=== PATIENT | male | born 1980 | race Caucasian/White ===

== ENCOUNTER 2021-05-13 09:35 | Emergency (ER) | payer MEDICAID ==
[~2021-05-13] VITALS: Ht 160 cm; Wt 70.0 kg
--- NOTE | 2021-05-13 10:23 | ED EENT ---
History of Present Illness General Chief Complaint: Dental Problems/Pain Stated Complaint: ABCESS TOOTH Nursing Triage Note: Patient presents with dental pain x's two days. Lower front tooth appears infected. Source: patient Exam Limitations: no limitations History of Present Illness Date Seen by Provider: May 13, 2021 Time Seen by Provider: 10:10 Initial Comments Patient is a 41-year-old gentleman who presents to the emergency department with a chief complaint of dental pain and swelling in his gums over the last 2 or 3 days. Patient states that he bit into some chicken and the tooth became loose. He states that he has follow-up with [facility] on 16 May. Patient denies any fevers or chills. He states he is a diabetic. He has not checked his blood sugar today. He has not been taking anything for pain since the toothache started. He states he is not allergic to anything. All other review of systems reviewed and negative except as stated. Timing/Duration: gradual Location: dental Prearrival Treatment: no prearrival treatment Associated Symptoms: tooth pain Allergies and Home Medications Allergies Coded Allergies: No Known Drug Allergies (Unverified , 05/13/21) Patient Home Medication List Home Medication List Reviewed: Yes Review of Systems Review of Systems Constitutional: see HPI Eyes: No Symptoms Reported Ears: No Symptoms Reported Nose: see HPI Mouth: loose teeth, pain, swelling, purulent discharge Throat: no symptoms reported Respiratory: no symptoms reported Cardiovascular: no symptoms reported Gastrointestinal: no symptoms reported Musculoskeletal: no symptoms reported Skin: no symptoms reported All Other Systems Reviewed Negative Unless Noted: Yes Past Frwafvf-Shrvwe-Bwgtsn Hx Patient Social History Tobacco Use?: No Substance use?: No Alcohol Use?: No Pt feels they are or have been: No Immunizations Up To Date First/Initial COVID19 Vaccinat: 12/2020 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 Physical Exam Vital Signs Vital Signs - First Documented Height, Weight, BMI Height: '" Weight: lbs. oz. kg; 27.00 BMI Method: General Appearance: WD/WN, no apparent distress Eyes: bilateral eye normal inspection, bilateral eye PERRL, bilateral eye EOMI Nose: normal inspection Mouth/Throat: other (Widespread gingivitis is noted. Patient has an abscess to tooth #25, obvious purulent drainage from the buccal side. Widespread tooth decay.) Neck: supple Cardiovascular: regular rate, rhythm Respiratory: no respiratory distress, no accessory muscle use Gastrointestinal: non tender, soft Neurologic/Psychiatric: alert, normal mood/affect, oriented x 3 Skin: normal color, warm/dry Progress/Results/Core Measures Results/Orders Vital Signs/I&O 05/13/21 05/13/21 09:58 09:58 Temp 35.7 35.7 Pulse 81 81 Resp 16 16 B/P (MAP) 124/82 124/82 (96) Pulse Ox 96 O2 Delivery Room Air Room Air Blood Pressure Mean: 96 Progress Progress Note : Time: 10:21 Progress Note Patient has widespread dental decay with an abscess adjacent to tooth #25. We w ill place the patient on antibiotics and chlorhexidine mouth rinses. Patient states that he has follow-up with [facility] next week. Return precautions given. Patient verbalized understanding. All questions are sought and answered. Patient is stable for discharge. Departure Impression Primary Impression: Dental abscess Additional Impressions: Gingivitis, acute Hyperglycemia due to diabetes mellitus Disposition: 01 HOME, SELF-CARE Condition: Stable Departure-Patient Inst. Decision time for Depature: 10:27 Referrals: [facility]/CHRISTINA CALERO,LOCAL PHYSICIAN (PCP) Primary Care Physician Patient Instructions: Tooth Abscess ED Add. Discharge Instructions: I have sent a prescription for chlorhexidine mouth rinse to [facility]. You need to use a tablespoon of this twice a day rinse and spit. 2 different antibiotics, penicillin and Flagyl, these will be taken 3 times a day for the next week to 10 days. I have written you a prescription for some pain medicine, you can take 1 every 6-8 hours as needed for severe pain. Please be sure and keep your appointment with [facility] next week. Come back to the emergency room for any worsening pain especially with fever, swelling, swelling of the floor of the mouth or any other emergent concerning symptoms that may develop. Scripts Hydrocodone/Acetaminophen (Hydrocodone-Acetamin 5-325 mg) 1 Each Tablet 1 TAB PO Q6H PRN for PAIN-MODERATE (5-7), #12 TAB Prov: GONZALO CAM MD 05/13/21 Metronidazole (Metronidazole) 500 Mg Tablet 500 MG PO TID, #28 TAB Prov: GONZALO CAM MD 05/13/21 Penicillin V Potassium (Penicillin V Potassium) 500 Mg Tablet 500 MG PO TID, #30 TAB Prov: GONZALO CAM MD 05/13/21 Chlorhexidine Gluconate (Chlorhexidine Gluconate) 473 Ml Mouthwash 15 ML MM BID, #1500 ML Prov: GONZALO CAM MD 05/13/21 Images Mouth/Nose 1 - Tenderness GONZALO CAM MD May 13, 2021 10:23
[2021-05-13] MEDS ORDERED: METR-145 PO (10:32)
[2021-05-13] MEDS ORDERED: ACHD5005 PO (10:32)
[2021-05-13] MEDS ORDERED: PENI500T PO (10:32)
[2021-05-13] MEDS ORDERED: NFCHLORHGL MM (10:32)
[2021-05-13 10:38] VITALS: BP 124/82
== END 2021-05-13 10:30 | disposition home or self-care (01) ==
LOC: ER 09:39
DX: K04.7 Periapical abscess without sinus (principal); K05.00 Acute gingivitis, plaque induced; E11.65 Type 2 diabetes mellitus with hyperglycemia
CPT/HCPCS: 82947

== ENCOUNTER 2021-11-08 19:46 | Emergency (ER) | payer MEDICAID ==
[~2021-11-08] VITALS: Ht 157.5 cm; Wt 74.8 kg
[~2021-11-08 19:46] MED LIST: ACHD5005 PO; METR-145 PO; NFCHLORHGL MM; PENI500T PO
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
[2021-11-08 20:08] VITALS: BP 133/73
[2021-11-08] MEDS ORDERED: PENI500T PO (20:08)
[2021-11-08] MEDS ORDERED: NFCHLORHGL MM (20:08)
[2021-11-08] MEDS ORDERED: METF-397 PO (20:18)
== END 2021-11-08 20:18 | disposition home or self-care (01) ==
LOC: EDUNIT# 19:46 → ER 19:48
DX: E11.65 Type 2 diabetes mellitus with hyperglycemia (principal); K05.00 Acute gingivitis, plaque induced; I10 Essential (primary) hypertension
CPT/HCPCS: 99283

== ENCOUNTER 2022-03-31 11:53 | Emergency (ER) | payer MEDICAID ==
[~2022-03-31] VITALS: Ht 153 cm; Wt 74.8 kg
[~2022-03-31 11:53] MED LIST changes: +METF-397 PO
[2022-03-31] MEDS ORDERED: IBUPROFEN 800 MG (MOTRIN) TAB PO ONE (12:15)
--- NOTE | 2022-03-31 12:16 | ED Upper Extremity ---
General Chief Complaint: Upper Extremity Stated Complaint: ARM PAIN Nursing Triage Note: PT STATES LT ARM PAIN/BURNING FROM SHOULDER DOWN TO HAND BUT MOSTLY IN THE FOREARM, UNKNOWN CAUSE, FIRST TIME THIS HAS HAPPENED. Source: patient Exam Limitations: no limitations History of Present Illness Date Seen by Provider: Mar 31, 2022 Time Seen by Provider: 12:05 Initial Comments Patient is a 41 yo M who presents to the ED with left forearm, wrist, and hand pain that began two weeks ago. He denies any injury to the area, No h/o similar pain. No medications taken for the symptoms since they began. States the pain is sometimes also in his upper arm and shoulder. Denies any chest pain. States movement sometimes worsens the pain. No numbness/tingling noted. No focal weakness. Onset: other (2 weeks ago) Severity: moderate Pain/Injury Location: left forearm, left wrist, left hand Method of Injury: unknown Allergies and Home Medications Allergies Coded Allergies: No Known Drug Allergies (Unverified , 05/13/21) Patient Home Medication List Home Medication List Reviewed: Yes Chlorhexidine Gluconate (Chlorhexidine Gluconate) 473 Ml Mouthwash, 15 ML MM BID Prescribed by: GONZALO CAM on 05/13/21 103 Chlorhexidine Gluconate (Chlorhexidine Gluconate) 0.12 % Mouthwash, 15 ML MM BID Prescribed by: GONZALO CAM on 11/08/212007 Hydrocodone/Acetaminophen (Hydrocodone-Acetamin 5-325 mg) 1 Each Tablet, 1 TAB PO Q6H PRN for PAIN-MODERATE (5-7) Prescribed by: GONZALO CAM on 05/13/21 103 Metformin HCl (Metformin HCl) 500 Mg Tablet, 500 MG PO BID Prescribed by: GONZALO CAM on 11/08/212017 Metronidazole (Metronidazole) 500 Mg Tablet, 500 MG PO TID Prescribed by: GONZALO CAM on 05/13/21 103 Penicillin V Potassium (Penicillin V Potassium) 500 Mg Tablet, 500 MG PO TID Prescribed by: GONZALO CAM on 05/13/21 103 Penicillin V Potassium (Penicillin V Potassium) 500 Mg Tablet, 500 MG PO TID Prescribed by: GONZALO CAM on 11/08/212007 Review of Systems Constitutional: no symptoms reported EENTM: no symptoms reported Respiratory: no symptoms reported Cardiovascular: no symptoms reported Gastrointestinal: no symptoms reported Musculoskeletal: muscle pain Past Supdyza-Ojlifd-Fwknci Hx Patient Social History Tobacco Use?: No Substance use?: No Alcohol Use?: No Immunizations Up To Date First/Initial COVID19 Vaccinat: 12/2020 Second COVID19 Vaccination Franco: 12/2020 Third COVID19 Vaccination Date: 12/2020 Past Medical History Surgery/Hospitalization HX: TYPE II DIABETIC Physical Exam Vital Signs Vital Signs - First Documented 03/31/22 11:59 Temp 36.1 Pulse 73 Resp 18 B/P (MAP) 131/89 (103) Pulse Ox 98 O2 Delivery Room Air Capillary Refill : Height, Weight, BMI Height: '" Weight: lbs. oz. kg; 31.00 BMI Method: General Appearance: WD/WN, no apparent distress HEENT: PERRL/EOMI Neck: non-tender, full range of motion, supple, normal inspection Cardiovascular: regular rate, rhythm, no edema, no gallop, no JVD, no murmur Respiratory: chest non-tender, lungs clear, normal breath sounds, no respiratory distress, no accessory muscle use Gastrointestinal: normal bowel sounds, non tender, soft, no organomegaly, no pulsatile mass Back: normal inspection, no CVA tenderness, no vertebral tenderness Shoulder: normal inspection, non-tender, no evidence of injury Elbow/Forearm: normal inspection, no evidence of injury, Left, pain, soft tissue tenderness Wrist: Yes normal inspection, Yes no evidence of injury, Yes soft tissue tenderness Hand: normal inspection, non-tender, no evidence of injury Neurologic/Tendon: normal sensation, normal motor functions Neurologic/Psychiatric: engine wiper II-XII nml as tested, no motor/sensory deficits, alert, normal mood/affect, oriented x 3 Skin: normal color, warm/dry Progress/Results/Core Measures Results/Orders My Orders Orders - BASIL STEINER APRN Forearm, Left, 2 Views (03/31/22 12:07) Ibuprofen Tablet (Motrin Tablet) (03/31/22 12:15) Medications Given in ED Current Medications Medications Dose Ordered Sig/Lia Route Start Time Stop Time Status Last Admin Dose Admin Ibuprofen 800 mg ONCE ONCE PO 03/31/22 12:15 03/31/22 12:16 DC 03/31/22 12:14 800 MG Vital Signs/I&O 03/31/22 03/31/22 11:59 12:14 Temp 36.1 36.1 Pulse 73 Resp 18 B/P (MAP) 131/89 (103) Pulse Ox 98 O2 Delivery Room Air Blood Pressure Mean: 103 Progress Progress Note : Progress Note Patient is nontoxic and well hydrated on exam. Visual exam of the LUE reveals no obvious abnormality. No swelling or erythema noted on exam. Pt has full ROM but does endorse some pain with flexion/extension of the wrist as well supination and pronation of the wrist. Pain is mostly on the ulnar side of the forearm. No neurovascular deficit appreciated. Xrays of the left forearm reveal no acute osseous deformity. Will d/c home with recs for supportive care and follow-up with PCP for persistent symptoms. Return precautions for urgent symptomology discussed. Patient verbalized understanding. Departure Impression Primary Impression: Pain of left upper extremity Disposition: HOME, SELF-CARE Condition: Stable Departure-Patient Inst. Decision time for Depature: 13:05 Referrals: NO,LOCAL PHYSICIAN (PCP/Family) Primary Care Physician Patient Instructions: Muscle and Bone Pain (DC) Scripts Naproxen (EC-Naproxen) 500 Mg Tablet. 500 MG PO BID WITH MEALS for 10 Days, #20 TAB Prov: BASIL STEINER APRN 03/31/22 BASIL STEINER APRN Mar 31, 2022 12:16
--- NOTE | 2022-03-31 12:29 | Diagnostic Imaging Report ---
INDICATION: Left forearm pain. COMPARISON: None. DISCUSSION: Two views of left forearm were obtained. Mild posterior soft tissue swelling. No soft tissue gas or foreign body. No fracture or dislocation. Alignment is anatomic. IMPRESSION: 1. Posterior left forearm soft tissue swelling. No fracture. Dictated by: Dictated on workstation # [id number]
[2022-03-31] MEDS ORDERED: NAPR-1211 PO (13:15)
[2022-03-31 13:19] VITALS: BP 131/89
== END 2022-03-31 13:19 | disposition home or self-care (01) ==
LOC: EDUNIT# 11:53 → ER 11:56
DX: M79.632 Pain in left forearm (principal); Z28.311 Partially vaccinated for COVID-19
CPT/HCPCS: 73090

== ENCOUNTER 2022-06-27 08:13 | Emergency (ER) | payer MEDICAID ==
[~2022-06-27] VITALS: Ht 162 cm; Wt 81.0 kg
[~2022-06-27 08:13] MED LIST changes: +NAPR-1211 PO
[2022-06-27 08:23] VITALS: BP 118/74
--- NOTE | 2022-06-27 08:42 | ED EENT ---
History of Present Illness General Chief Complaint: Ear Problems Stated Complaint: EAR PAIN (BOTH EARS) Nursing Triage Note: ARRIVED VIA AMB TO ROOM 08 WITH COMPLAINTS OF BILAT EAR PAIN STARTING LAST NIGHT. Source: patient Exam Limitations: no limitations History of Present Illness Date Seen by Provider: Jun 27, 2022 Time Seen by Provider: 08:25 Initial Comments Here with report of bilateral ear pain starting last night. States that he did use Q-tips to try to clear what he thought was wax. Does have mild congestion but no sore throat. He is vaccinated for COVID and influenza. Also complains of left wrist pain that is been going on for about 3 months. He is right-handed and admits to sleeping on his hands bent. He does not have primary care. Timing/Duration: gradual, yesterday Severity: mild, moderate Location: ear (R), ear (L) Prearrival Treatment: no prearrival treatment Associated Symptoms: No cough, No ear drainage, No facial pain/swelling, No fever; nasal congestion/drainage; No sinus infection, No tooth pain Allergies and Home Medications Allergies Coded Allergies: No Known Drug Allergies (Unverified , 05/13/21) Patient Home Medication List Home Medication List Reviewed: Yes Chlorhexidine Gluconate (Chlorhexidine Gluconate) 473 Ml Mouthwash, 15 ML MM BID Prescribed by: GONZALO CAM on 05/13/21 103 Chlorhexidine Gluconate (Chlorhexidine Gluconate) 0.12 % Mouthwash, 15 ML MM BID Prescribed by: GONZALO CAM on 11/08/212007 Hydrocodone/Acetaminophen (Hydrocodone-Acetamin 5-325 mg) 1 Each Tablet, 1 TAB PO Q6H PRN for PAIN-MODERATE (5-7) Prescribed by: GONZALO CAM on 05/13/21 103 Metformin HCl (Metformin HCl) 500 Mg Tablet, 500 MG PO BID Prescribed by: GONZALO CAM on 11/08/212017 Metronidazole (Metronidazole) 500 Mg Tablet, 500 MG PO TID Prescribed by: GONZALO CAM on 05/13/21 103 Naproxen (EC-Naproxen) 500 Mg Tablet.dr, 500 MG PO BID WITH MEALS Prescribed by: Carlos Smith on 03/31/22 1315 Penicillin V Potassium (Penicillin V Potassium) 500 Mg Tablet, 500 MG PO TID Prescribed by: GONZALO CAM on 05/13/21 1032 Penicillin V Potassium (Penicillin V Potassium) 500 Mg Tablet, 500 MG PO TID Prescribed by: GONZALO CAM on 11/08/212007 Review of Systems Review of Systems Constitutional: see HPI; No chills, No fever Eyes: No Symptoms Reported Ears: See HPI Nose: congestion; denies pain Mouth: no symptoms reported Throat: denies pain, denies painful swallowing Respiratory: no symptoms reported Musculoskeletal: joint pain, joint swelling Skin: No change in color, No lesions Past Sdglljg-Fykdya-Fbukno Hx Patient Social History Tobacco Use?: No Substance use?: No Alcohol Use?: No Immunizations Up To Date First/Initial COVID19 Vaccinat: TRACEY Second COVID19 Vaccination Franco: 12/2020 Third COVID19 Vaccination Date: 12/2020 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 oz. kg; 30.00 BMI Method: General Appearance: WD/WN, no apparent distress Ears: bilateral ear other (Bilateral TM bulging without erythema. No significant cerumen impaction bilateral.) Nose: other (Mild congestion without significant erythema) Mouth/Throat: pharynx normal; No tonsillar swelling Neck: full range of motion, supple, normal inspection Cardiovascular: regular rate, rhythm, no murmur Respiratory: lungs clear, normal breath sounds Neurologic/Psychiatric: alert, oriented x 3 Skin: normal color, warm/dry Left wrist without significant swelling. Does have increased pain with forward flexion on the lateral aspect recreating pain syndrome. Progress/Results/Core Measures Results/Orders Vital Signs/I&O 06/27/22 08:23 Temp 36.2 Pulse 86 Resp 16 B/P (MAP) 118/74 (89) Pulse Ox 98 O2 Delivery Room Air Blood Pressure Mean: 89 Progress Progress Note : Progress Note Seen and evaluated. Discussed importance of follow-up with primary care and we will give him information for community health. Offered IM Decadron for what appears to be upper respiratory congestion with TM bulging. Patient declined. We will initiate patient [id number] Afrin nasal spray and ibuprofen. Discharged home with return precaution. Patient verbalized understanding instructions and agreement with plan. Departure Impression Primary Impression: Acute pain of both ears Additional Impression: Left wrist pain Disposition: HOME, SELF-CARE Condition: Stable Departure-Patient Inst. Decision time for Depature: 08:44 Referrals: ABIGAIL MOSQUERA,LOCAL PHYSICIAN (PCP) [place] Care Physician [facility] [place] Instructions: Carpal Tunnel Syndrome (DC), Eustachian Tube Problems (DC) Add. Discharge Instructions: All discharge instructions reviewed with patient and/or family. Voiced understanding. You may take Tylenol/acetaminophen 1000 mg every 8 hours as needed for fever or pain. You may take ibuprofen 600 mg every 8 hours as needed for fever or pain. You may use Afrin nasal spray or the generic, 12 hour relief, 2 sprays to each nostril twice daily for 3 days only and then stop. Do not use more than 3 days. Follow-up with your Dr. in a few days for recheck. Drink plenty of fluids. Return for worse pain, fever, vomiting, weakness, breathing problems or other concerns as needed. You may use wrist splint as needed for your left wrist pain. You may purchase this haht-nna-ykvicoy as well. It is very important that you follow-up with the doctor listed or of your choosing especially given your history of diabetes. Please establish care. LAURA MESA MD Jun 27, 2022 08:42
== END 2022-06-27 08:54 | disposition home or self-care (01) ==
LOC: EDUNIT# 08:13 → ER 08:15
DX: H92.03 Otalgia, bilateral (principal); M25.532 Pain in left wrist; Z28.310 Unvaccinated for COVID-19
CPT/HCPCS: 99282

== ENCOUNTER 2022-10-12 00:53 | Emergency (ER) | payer MEDICAID ==
[~2022-10-12] VITALS: Ht 145 cm; Wt 78.3 kg
[2022-10-12 00:59] VITALS: BP 119/75
--- NOTE | 2022-10-12 01:11 | ED General ---
General Chief Complaint: General Problems/Pain Stated Complaint: PT STS NEEDS CLEARED FOR WORK,STS DIZZY Nursing Triage Note: REPORTS FEELING DIZZY, DIARRHEA 2 DAYS AGO. REPORTS SX GONE TODAY. NEEDS CLEARED TO GO BACK TO WORK. 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 He does symptoms of them are gone he is feeling fine. Reports that he was told he can come back to work until he was cleared. Allergies and Home Medications Allergies Coded Allergies: No Known Drug Allergies (Unverified , 05/13/21) Patient Home Medication List Home Medication List Reviewed: Yes No Active Prescriptions or Reported Meds Review of Systems Review of Systems Constitutional: see HPI EENTM: no symptoms reported Respiratory: no symptoms reported Cardiovascular: no symptoms reported Gastrointestinal: see HPI Genitourinary: no symptoms reported Musculoskeletal: no symptoms reported Skin: no symptoms reported Past Sydlfsq-Mlylsx-Ezugfn Hx Patient Social History Tobacco Use?: No Substance use?: No Alcohol Use?: No Pt feels they are or have been: No Immunizations Up To Date First/Initial COVID19 Vaccinat: X1 Second COVID19 Vaccination Franco: 12/2020 Third COVID19 Vaccination Date: 12/2020 Past Medical History Surgery/Hospitalization HX: ORAL SURGERY Surgeries: No Endocrine: Yes Diabetes, Non-Insulin dep Physical Exam Vital Signs Capillary Refill : Less Than 3 Seconds Height, Weight, BMI Height: '" Weight: lbs. oz. kg; 37.00 BMI Method: General Appearance: No Apparent Distress, WD/WN Respiratory: Chest Non Tender, Lungs Clear Cardiovascular: Regular Rate, Rhythm, No Edema Gastrointestinal: Non Tender, Soft Extremity: Normal Capillary Refill, Normal Inspection Neurologic/Psychiatric: Alert, Oriented x3, No Motor/Sensory Deficits, Normal Mood/Affect Skin: Normal Color Progress/Results/Core Measures Suspected Sepsis SIRS Temperature: Pulse: 83 Respiratory Rate: 16 Blood Pressure 119 /75 Mean: 90 Results/Orders Vital Signs/I&O Capillary Refill : Less Than 3 Seconds Blood Pressure Mean: 90 Progress Note : Progress Note Patient with some dizziness and diarrhea couple days ago but no symptoms at this time. Patient's symptoms have been resolved. Patient is here for a work note. At this time there are no indications for me to do any further diagnostic studies as he is feeling fine. Patient has unknown cause of his dizziness and diarrhea. He is stable and discharged home Departure Impression Primary Impression: Diarrhea Qualified Codes: R19.7 - Diarrhea, unspecified Disposition: HOME, SELF-CARE Condition: Stable Departure-Patient Inst. Referrals: [facility] [place] Primary Care Physician Patient Instructions: Diarrhea, Adult ED Add. Discharge Instructions: Follow-up with primary care provider or occupational health as needed All discharge instructions reviewed with patient and/or family. Voiced understanding. Scripts No Active Prescriptions or Reported Meds Work/School Note: Work Release Form Date Seen in the Emergency Department: Oct 12, 2022 Return to Work: Oct 12, 2022 Restrictions: Return-No Fever (24hrs), Return-No Vomiting(24hrs) CLARIBEL OMER DO Oct 12, 2022 01:10
== END 2022-10-12 01:11 | disposition home or self-care (01) ==
LOC: EDUNIT# 00:53 → ER 00:57
DX: R19.7 Diarrhea, unspecified (principal); R42 Dizziness and giddiness; Z28.310 Unvaccinated for COVID-19
CPT/HCPCS: 99281

== ENCOUNTER 2023-02-13 19:00 | Emergency (ER) | payer MEDICAID ==
[2023-02-13 19:19] VITALS: BP 121/79
--- NOTE | 2023-02-13 19:23 | ED EENT ---
History of Present Illness General Chief Complaint: Ear Problems Stated Complaint: UNABLE TO HEAR OUT OF RIGHT EAR Source: patient History of Present Illness Date Seen by Provider: Feb 13, 2023 Time Seen by Provider: 19:19 Initial Comments PT ARRIVES VIA POV C/O UNABLE TO HEAR FROM RIGHT EAR X 2 DAYS NO PAIN NO INJURY NO DRAINAGE NO URI SYMPTOMS OR RECENT ILLNESS NO DIZZINESS NO HISTORY OF SIMILAR PCP: [facility] Allergies and Home Medications Allergies Coded Allergies: No Known Drug Allergies (Unverified , 05/13/21) Patient Home Medication List Home Medication List Reviewed: Yes No Active Prescriptions or Reported Meds Review of Systems Review of Systems Constitutional: no symptoms reported Ears: See HPI Neurological: No Symptoms Reported Past Vwrhygl-Xdjffr-Bplood Hx Patient Social History Tobacco Use?: No Use of E-Cig and/or Vaping dev: No Substance use?: No Alcohol Use?: No Pt feels they are or have been: No Immunizations Up To Date First/Initial COVID19 Vaccinat: X1 Second COVID19 Vaccination Franco: X1 Third COVID19 Vaccination Date: X1 Past Medical History Surgery/Hospitalization HX: ORAL SURGERY Surgeries: Yes (ORAL SURGERY) Respiratory: No Cardiac: No Neurological: No Genitourinary: No Gastrointestinal: No Musculoskeletal: No Endocrine: Yes Diabetes, Non-Insulin dep HEENT: No Cancer: No Psychosocial: No Integumentary: No Blood Disorders: No Physical Exam Vital Signs Vital Signs - First Documented 02/13/23 19:19 Temp 36.5 Pulse 93 Resp 18 B/P (MAP) 121/79 (93) Height, Weight, BMI Height: '" Weight: lbs. oz. kg; 37.00 BMI Method: General Appearance: WD/WN, no apparent distress Ears: right ear other (RIGHT EAR WITH CERUMEN IMPACTION; LEFT EAR WITH SMALL AMOUNT OF CERUMEN. LEFT TM IS CLEAR. 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 Departure Impression Primary Impression: Right ear impacted cerumen Disposition: HOME, SELF-CARE Condition: Stable Departure-Patient Inst. Decision time for Depature: 19:25 Referrals: [facility] (PCP/Family) Primary Care Physician Patient Instructions: Ear Wax Impaction ED Add. Discharge Instructions: USE OVER THE COUNTER EAR WAX REMOVAL KIT NEEDED FOR EAR WAX BUILD UP FOLLOW UP WITH [facility] NEEDED All discharge instructions reviewed with patient and/or family. Voiced understanding. Scripts No Active Prescriptions or Reported Meds LEON VÁSQUEZ DO Feb 13, 2023 19:23
[2023-02-13] MEDS ORDERED: DOCUSATE SODIUM 100 MG CAPSULE PO ONE (19:30)
== END 2023-02-13 19:31 | disposition home or self-care (01) ==
LOC: EDUNIT# 19:00 → ER 19:03
DX: H61.21 Impacted cerumen, right ear (principal)
CPT/HCPCS: 99281

== ENCOUNTER 2023-02-18 18:54 | Emergency (ER) | payer MEDICAID ==
[~2023-02-18] VITALS: Ht 165 cm; Wt 83.9 kg
--- NOTE | 2023-02-18 19:21 | ED Upper Extremity ---
General Chief Complaint: Upper Extremity Stated Complaint: ARM PAIN/NUMBNESS Source: patient Exam Limitations: no limitations History of Present Illness Date Seen by Provider: Feb 18, 2023 Time Seen by Provider: 19:10 Initial Comments Patient is a 42-year-old male who presents to the emergency department with a chief complaint of bilateral arm pain. He initially states he woke up with it this morning. Later he states he had it last night before he went to bed. He did take some ibuprofen. Woke up with the pain again. He states it radiates from his shoulders down to his fingers. He denies any injury. No different activities at work yesterday than what he does normally. Movement and palpation make the pain worse. Nothing makes it any better. He denies chest pain, shortness of breath, nausea. He is a diabetic on metformin. Non-smoker, nondrinker. He has not taken any medications today for the pain and states that he stayed home from work today due to the pain. He states he drinks 4 bottles of water daily. No recent fevers or chills, no productive cough. No pain in his legs. Onset: yesterday, other (last evening) Severity: moderate Pain/Injury Location: bilateral shoulder, bilateral arm, bilateral elbow, bilateral forearm Method of Injury: other (wotk) Modifying Factors: Improves With Immobilization; Worse With Movement Allergies and Home Medications Allergies Coded Allergies: No Known Drug Allergies (Unverified , 05/13/21) Patient Home Medication List Home Medication List Reviewed: Yes No Active Prescriptions or Reported Meds Review of Systems Constitutional: see HPI EENTM: no symptoms reported Respiratory: no symptoms reported Cardiovascular: no symptoms reported Gastrointestinal: no symptoms reported Genitourinary: no symptoms reported Musculoskeletal: muscle pain, muscle cramps Skin: no symptoms reported Psychiatric/Neurological: No Symptoms Reported All Other Systems Reviewed Negative Unless Noted: Yes Past Vhbweqt-Iyjpqg-Nnasip Hx Immunizations Up To Date First/Initial COVID19 Vaccinat: X1 Second COVID19 Vaccination Franco: X1 Third COVID19 Vaccination Date: X1 Past Medical History Surgery/Hospitalization HX: ORAL SURGERY Surgeries: Yes (ORAL SURGERY) Respiratory: No Cardiac: No Neurological: No Genitourinary: No Gastrointestinal: No Musculoskeletal: No Endocrine: Yes Diabetes, Non-Insulin dep HEENT: No Cancer: No Psychosocial: No Integumentary: No Blood Disorders: No Physical Exam Vital Signs Vital Signs - First Documented 02/18/23 19:06 Temp 37.0 Pulse 97 Resp 20 B/P (MAP) 111/72 (85) Pulse Ox 99 O2 Delivery Room Air Capillary Refill : Height, Weight, BMI Height: '" Weight: lbs. oz. kg; 37.00 BMI Method: General Appearance: WD/WN, no apparent distress HEENT: PERRL/EOMI Neck: normal inspection Cardiovascular: regular rate, rhythm Respiratory: lungs clear, normal breath sounds, no respiratory distress, no accessory muscle use Gastrointestinal: non tender, soft Shoulder: normal inspection, no evidence of injury, soft tissue tenderness (tenderness to palpation bilateral shoulder/upper arm and forearms. No crepitance. No swelling. No discoloration. no rashes.) Elbow/Forearm: normal inspection, no evidence of injury Wrist: Yes normal inspection, Yes non-tender, Yes no evidence of injury, Yes normal ROM Hand: normal inspection, non-tender, no evidence of injury, normal ROM, Right, Left Neurologic/Psychiatric: alert, normal mood/affect, oriented x 3, other (patient has intact bilateral UE strength and sesnation is normal) Skin: normal color, warm/dry Progress/Results/Core Measures Results/Orders Lab Results Laboratory Tests Test 02/18/23 19:12 Range/Units Glucometer 164 H 70-110 MG/DL My Orders Orders - GONZALO CAM MD Ketorolac Injection (Ketorolac Injection (02/18/23 19:30) Accucheck Stat ONCE (02/18/23 19:35) Medications Given in ED Current Medications Medications Dose Ordered Sig/Lia Route Start Time Stop Time Status Last Admin Dose Admin Ketorolac Tromethamine 15 mg ONCE ONCE IM 02/18/23 19:30 02/18/23 19:31 DC 02/18/23 19:37 15 MG Vital Signs/I&O 02/18/23 02/18/23 19:06 19:39 Temp 37.0 Pulse 97 Resp 20 B/P (MAP) 111/72 (85) 111/72 Pulse Ox 99 O2 Delivery Room Air [facility]SB[facility] Bedside Testing Finger Stick Blood Glucose: 164 Progress Progress Note : Time: 19:25 Progress Note Patient seen and examined by me today. Evaluation today includes physical exam. No concerning findings on physical exam other than tenderness to superficial palpation of the upper and lower bilateral arms. Vital signs stable. Differential diagnosis includes muscle strain, need for work note. Patient is treated in the emergency department with IM ketorolac. No concerning findings on physical exam or in history to warrant laboratory studies or imaging. Patient is counseled on hydration and NSAIDs. He is provided a work note. Departure Impression Primary Impression: Myalgia Disposition: HOME, SELF-CARE Condition: Stable Departure-Patient Inst. Decision time for Depature: 19:27 Referrals: [facility] [place] [facility] [place]) Primary Care Physician Patient Instructions: Muscle Strain ED Add. Discharge Instructions: Drink lots of water to stay well hydrated - especially in this heat. Take over the counter Ibuprofen 3 pills (600mg) every 6-8 hours for muscle pain and aches. Always take Ibuprofen with food. If you have worsening pain especially with fever or new pain in your back or legs, please return to the Emergency Department for re-evaluation. Scripts No Active Prescriptions or Reported Meds Work/School Note: Work Release Form Date Seen in the Emergency Department: Feb 18, 2023 Return to Work: Feb 19, 2023 Copy Copies To 1: ABIGAIL MOSQUERA KATHRYN M MD Feb 18, 2023 19:21
[2023-02-18] MEDS ORDERED: KETOROLAC INJ 15 MG/ML VIAL IM ONE (19:30)
[2023-02-18 19:39] VITALS: BP 111/72
== END 2023-02-18 19:41 | disposition home or self-care (01) ==
LOC: EDUNIT# 18:54 → ER 18:57
DX: M79.601 Pain in right arm (principal); M79.602 Pain in left arm; E11.9 Type 2 diabetes mellitus without complications; Z79.84 Long term (current) use of oral hypoglycemic drugs; Z28.310 Unvaccinated for COVID-19
CPT/HCPCS: 82947

== ENCOUNTER 2023-03-17 18:04 | Emergency (ER) | payer MEDICAID ==
[~2023-03-17] VITALS: Ht 175 cm; Wt 85.0 kg
[2023-03-17 18:31] VITALS: BP 104/86
--- NOTE | 2023-03-17 18:45 | ED Upper Extremity ---
General Chief Complaint: Upper Extremity Stated Complaint: BOTH ARM PAIN, NUMBNESS IN LT FINGERS Nursing Triage Note: pt states both hands go numb at times, states he does a lot of repetitive movements at work. denies any other neurological symptoms. Source: patient Exam Limitations: no limitations History of Present Illness Date Seen by Provider: Mar 17, 2023 Time Seen by Provider: 18:39 Initial Comments Patient is a 42-year-old male who presents ED with numbness and tingling bilateral palmar hands. Patient describes as numbness and tingling. Patient works at [employer]. Patient states he has had symptoms over the past 2 or 3 weeks. 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 States with his repetitive movement he starts get numbness and tingling along the left palmar hand and right little finger, right middle finger and ring finger. States he has normal range of motion of the hand and with warehouse administrator strength. Has been taking ibuprofen without much improvement. Patient denies any redness or bruising. Pain does not radiate from the neck down. State pain radiates from the hand up. Denies fever, chills, nausea vomiting, diarrhea. Allergies and Home Medications Allergies Coded Allergies: No Known Drug Allergies (Unverified , 05/13/21) Patient Home Medication List Home Medication List Reviewed: Yes No Active Prescriptions or Reported Meds Review of Systems Constitutional: No chills, No diaphoresis, No fever, No malaise, No weakness EENTM: No ear pain Respiratory: No cough, No dyspnea on exertion Cardiovascular: No chest pain Gastrointestinal: No abdominal pain, No dysphagia, No nausea, No vomiting Genitourinary: No decreased output Musculoskeletal: No back pain; joint pain, muscle pain Skin: No change in color Psychiatric/Neurological: Numbness, Paresthesia All Other Systems Reviewed Negative Unless Noted: Yes Past Aiqubli-Fdbepx-Wbrxas Hx Patient Social History Tobacco Use?: No Use of E-Cig and/or Vaping dev: No Substance use?: No Alcohol Use?: No Pt feels they are or have been: No Immunizations Up To Date First/Initial COVID19 Vaccinat: X1 Second COVID19 Vaccination Franco: X1 Third COVID19 Vaccination Date: X1 Past Medical History Surgery/Hospitalization HX: none Surgeries: Yes (ORAL SURGERY) Respiratory: No Cardiac: No Neurological: No Genitourinary: No Gastrointestinal: No Musculoskeletal: No Endocrine: Yes Diabetes, Non-Insulin dep HEENT: No Cancer: No Psychosocial: No Integumentary: No Blood Disorders: No Physical Exam Vital Signs Vital Signs - First Documented 03/17/23 18:31 Temp 36.8 Pulse 70 Resp 19 B/P (MAP) 104/86 (92) Pulse Ox 98 O2 Delivery Room Air Capillary Refill : Less Than 3 Seconds Height, Weight, BMI Height: '" Weight: lbs. oz. kg; 27.00 BMI Method: General Appearance: WD/WN, no apparent distress HEENT: PERRL/EOMI, normal ENT inspection, TMs normal, pharynx normal Neck: non-tender, full range of motion, supple Cardiovascular: regular rate, rhythm, no edema, no JVD Respiratory: chest non-tender, lungs clear, normal breath sounds, no respiratory distress Gastrointestinal: normal bowel sounds, non tender, soft Back: normal inspection, no CVA tenderness Shoulder: normal inspection, non-tender, no evidence of injury Elbow/Forearm: normal inspection, no evidence of injury, Right (Tenderness along the right ulnar cubital tunnel.) Wrist: Yes no evidence of injury, Yes normal ROM (Positive failing and Nobleton sign left hand.) Hand: Right (Inside Solar Sales Consultant strength 5 out of 5), Left (Inside Solar Sales Consultant strength 5 out of 5) 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 Differential diagnosis carpal tunnel syndrome, cubital tunnel syndrome, overuse syndrome. Patient works at [employer]. Patient has pain of the left hand and right hand. This appears to be on the palmar side. Right hand is the right little finger, ring finger and middle finger along the ulnar dermatome. Pain of the left hand is along the left little finger, left middle finger, left ring finger, left index and thumb. Positive Phalen sign on the left. States it feels numb. He does have adequate warehouse administrator strength bilateral. Positive cubital tunnel syndrome on the right arm. Concern for nerve impingement. At this time recommend splint of the left wrist. Anti-inflammatories. Rest. Provided work note. This is likely secondary to repetitive use. Would likely benefit with EMG. Provided orthopedic outpatient follow-up. Provided work note. No evidence of weakness. Negative Spurling sign. Return precaution were discussed with patient. Impression Primary Impression: Carpal tunnel syndrome Additional Impression: Cubital tunnel syndrome Disposition: HOME, SELF-CARE Condition: Stable Departure-Patient Inst. Decision time for Depature: 18:43 Referrals: [facility] [place] ([place]P/Family) Primary Care Physician SALVADOR MORALES MD Patient Instructions: Cubital Tunnel Syndrome Add. Discharge Instructions: AvoidWear Velcro splint throughout the day as well as work. Recommend rest. Continue with ibuprofen. Orthopedic follow-up. Need a nerve conduction study test and further evaluation by orthopedic. Recommend limit work that has repetitive movements of the hands and wrist to allow this to heal. Concern for cubital tunnel and or carpal tunnel syndrome All discharge instructions reviewed with patient and/or family. Voiced understanding. Scripts No Active Prescriptions or Reported Meds Work/School Note: Work Release Form Date Seen in the Emergency Department: Mar 17, 2023 Return to Work: Mar 20, 2023 Restrictions: Recommend limiting cutting for at least 2 weeks EBONI WALKER Mar 17, 2023 18:45
== END 2023-03-17 19:01 | disposition home or self-care (01) ==
LOC: EDUNIT# 18:04 → ER 18:07
DX: G56.03 Carpal tunnel syndrome, bilateral upper limbs (principal); G56.23 Lesion of ulnar nerve, bilateral upper limbs
CPT/HCPCS: 99282

== ENCOUNTER 2023-04-20 20:05 | Emergency (ER) | payer MEDICAID ==
[~2023-04-20] VITALS: Ht 157 cm; Wt 77.0 kg
--- NOTE | 2023-04-20 20:22 | ED Cough/URI ---
General Chief Complaint: Cough/Cold/Flu Symptoms Stated Complaint: COUGH/JOINT ACHES Source: patient Exam Limitations: no limitations (EBONI WALKER) History of Present Illness Date Seen by Provider: Apr 20, 2023 Time Seen by Provider: 20:19 Initial Comments Patient is a 43-year-old male who presents to ED with cough, body aches chills weakness. Symptoms started on . Started having a wet productive cough with creamy sputum production. Denies of any shortness of breath or wheezing or chest pain. Patient did have some episodes of diarrhea but that has improved. Denies vomiting. Ports sore throat with a cough. Denies history of smoking history of COPD, coronary artery disease. No one else at home with similar symptoms. Has been taking NyQuil and Tylenol. Patient denies any headache dizziness, pain with urination, decreased urine output, visual changes, abdominal pain, fever, dysuria, hematuria. Patient states he feels like the coughing is getting worse. (EBONI WALKER) Allergies and Home Medications Allergies Coded Allergies: No Known Drug Allergies (Unverified , 05/13/21) Patient Home Medication List Home Medication List Reviewed: Yes (EBONI WALKER) Doxycycline Monohydrate (Doxycycline Monohydrate) 100 Mg Tablet, 100 MG PO BID Prescribed by: NAFISA NAJERA on 04/20/232058 Prednisone (Prednisone) 20 Mg Tab, 40 MG PO DAILY Prescribed by: NAFISA NAJERA on 04/20/232058 Review of Systems Review of Systems Constitutional: No chills, No diaphoresis; malaise, weakness EENTM: throat pain; No ear pain, No blurred vision Respiratory: cough; No dyspnea on exertion, No short of breath Cardiovascular: No chest pain Gastrointestinal: No abdominal pain; diarrhea; No nausea, No vomiting Genitourinary: No decreased output, No discharge Musculoskeletal: No back pain; joint pain, muscle pain Skin: No change in hair/nails (EBONI WALKER) All Other Systems Reviewed Negative Unless Noted: Yes (EBONI WALKER) Past Csyisbv-Whmjjs-Ckcqkm Hx Patient Social History Tobacco Use?: No Use of E-Cig and/or Vaping dev: No Substance use?: No Alcohol Use?: No Pt feels they are or have been: No (EBONI WALKER) Immunizations Up To Date First/Initial COVID19 Vaccinat: X1 Second COVID19 Vaccination Franco: X1 Third COVID19 Vaccination Date: X1 (EBONI WALKER) Past Medical History Surgery/Hospitalization HX: none Surgeries: Yes (ORAL SURGERY) Respiratory: No Cardiac: No Neurological: No Genitourinary: No Gastrointestinal: No Musculoskeletal: No Endocrine: Yes Diabetes, Non-Insulin dep HEENT: No Cancer: No Psychosocial: No Integumentary: No Blood Disorders: No (EBONI WALKER) Physical Exam Vital Signs - First Documented 04/20/23 20:15 Temp 36.6 Pulse 92 Resp 16 B/P (MAP) 116/70 (85) Pulse Ox 99 O2 Delivery Room Air (LEON VÁSQUEZ DO) Capillary Refill : (EBONI WALKER) Height: '" Weight: lbs. oz. kg; 27.00 BMI Method: General Appearance: WD/WN, no apparent distress Eyes: Bilateral Eye Normal Inspection, Bilateral Eye PERRL, Bilateral Eye EOMI HEENT: PERRL/EOMI, normal ENT inspection, TMs normal, pharynx normal Neck: non-tender, full range of motion, supple Respiratory: chest non-tender, lungs clear, normal breath sounds, no respiratory distress Cardiovascular: regular rate, rhythm, no edema, no gallop, no JVD Gastrointestinal: normal bowel sounds, non tender, soft Extremities: normal range of motion, non-tender, normal inspection, no pedal edema Neurologic/Psychiatric: improvement auditor II-XII nml as tested, no motor/sensory deficits, alert, normal mood/affect Skin: normal color, warm/dry (EBONI WALKER) Progress/Results/Core Measures Suspected Sepsis SIRS Temperature: Pulse: Respiratory Rate: Blood Pressure / Mean: (EBONI WALKER) Results/Orders Lab Results Laboratory Tests Test 04/20/23 20:23 Range/Units Influenza Type A (RT-PCR) Not Detected Not Detecte Influenza Type B (RT-PCR) Not Detected Not Detecte SARS-CoV-2 RNA (RT-PCR) Not Detected Not Detecte (LEON VÁSQUEZ DO) Medications Given in ED Current Medications Medications Dose Ordered Sig/Lia Route Start Time Stop Time Status Last Admin Dose Admin Albuterol Sulfate 1 gm ONCE ONCE IH 04/20/23 21:00 04/20/23 21:01 DC 04/20/23 21:08 1 GM Prednisone 50 mg ONCE ONCE PO 04/20/23 21:00 04/20/23 21:01 DC 04/20/23 21:08 50 MG (LEON VÁSQUEZ DO) Vital Signs/I&O 04/20/23 04/20/23 20:15 21:10 Temp 36.6 36.6 Pulse 92 87 Resp 16 16 B/P (MAP) 116/70 (85) 116/70 Pulse Ox 99 99 O2 Delivery Room Air Room Air (LEON VÁSQUEZ DO) Vital Signs/I&O Capillary Refill : (EBONI WALKER) Departure Communication (PCP) Patient presents to ED with cough body aches chills weakness joint pain. Denies history of coronary artery disease, COPD or asthma or smoking. History of diabetes. Patient vital signs were stable. No wheezing retractions. Patient is having significant amount of cough. COVID influenza chest x-ray was ordered. Patient had very subtle wheezing to the right lower lobe. COVID influenza was negative. Chest x-ray shows a Rounded density in the right lower lobe is likely due to infiltrate. Patient received a dose of prednisone. Did receive a alb uterol inhaler and took 2 puffs here in the ED. States he feels better after the inhaler. Patient does not look systemically toxic. Concern for community- acquired pneumonia. History of diabetes. At this time will discharge with oral doxycycline short burst steroids and albuterol inhaler. Vital signs remained stable. At this time we will treat with oral doxycycline. If any worsening symptoms such as chest pain or shortness of breath return back to ED. Recommend follow-up resolution in 7 to 10 days of the chest (EBONI WALKER) Impression Primary Impression: Pneumonia Disposition: HOME, SELF-CARE Condition: Stable Departure-Patient Inst. Decision time for Depature: 20:58 (EBONI WALKER) Referrals: [facility] (PCP/Family) Primary Care Physician Patient Instructions: Pneumonia, Adult (DC) Add. Discharge Instructions: Take antibiotics as prescribed. Albuterol to help with shortness of breath. Prednisone daily for 4 days. Recommend rest at home. If any worsening symptoms such as pain short of breath return back to ED All discharge instructions reviewed with patient and/or family. Voiced understanding. Scripts Prednisone (Prednisone) 20 Mg Tab 40 MG PO DAILY for 4 Days, #8 TAB Prov: EBONI WALKER 04/20/23 Doxycycline Monohydrate (Doxycycline Monohydrate) 100 Mg Tablet 100 MG PO BID for 7 Days, #14 TAB Prov: EBONI WALKER 04/20/23 Work/School Note: Work Release Form Date Seen in the Emergency Department: Apr 20, 2023 Return to Work: Apr 23, 2023 ATTENDING PHYSICIAN NOTE: I WAS PHYSICALLY PRESENT ER PHYSICIAN, BUT I WAS NOT INVOLVED IN ANY DECISION MAKING OR ANY CARE OF THIS PATIENT, AND I AM NOT COLLABORATING PHYSICIAN. (LEON VÁSQUEZ DO) EBONI WALKER Apr 20, 2023 20:22 LEON VÁSQUEZ DO Apr 20, 2023 22:11
--- NOTE | 2023-04-20 20:51 | Diagnostic Imaging Report ---
INDICATION: Cough AP view of the chest is obtained. Overall heart size and pulmonary vascularity are within normal limits. There is a rounded area of parenchymal density in the right lower lobe may represent round pneumonia. There is no pneumothorax or significant pleural fluid. Left lung is clear. IMPRESSION: Rounded density in the right lower lobe is likely due to infiltrate. Given the rounded, somewhat masslike morphology, short-term radiographic follow-up with PA and lateral views of the chest after treatment for pneumonia would be useful to document resolution. Dictated by: Dictated on workstation # [id number]
[2023-04-20] MEDS ORDERED: DOXY100T31 PO (20:59)
[2023-04-20] MEDS ORDERED: PRD20T PO (20:59)
[2023-04-20] MEDS ORDERED: RX-ALBUTEROL INHALER 8.5 GM HFA (PROAIR) IH ONE (21:00)
[2023-04-20] MEDS ORDERED: predniSONE 20 MG TABLET PO ONE (21:00)
[2023-04-20 21:10] VITALS: BP 116/70
== END 2023-04-20 21:10 | disposition home or self-care (01) ==
LOC: EDUNIT# 20:05 → ER 20:08
DX: J18.9 Pneumonia, unspecified organism (principal); Z20.822 Contact with and (suspected) exposure to COVID-19
CPT/HCPCS: 71045; 87636